=== PATIENT | male | born 1975 | race Caucasian/White ===

== ENCOUNTER 2017-12-31 06:03 | Day surgery (SDC) | payer OTHER ==
[2017-12-31] MEDS ORDERED: ceFAZolin 2 GM/50 ML 2 GM/50 ML BAG IV ONE (06:28)
[2017-12-31] MEDS ORDERED: LACTATED RINGERS 1,000 ML IV ONE (06:43)
--- NOTE | 2017-12-31 07:12 | ANESTHESIA ---
Pre-Anesthesia VS, & Labs - Diagnosis R ACL failure after repair - Procedure R knee scope, ACL debridement Vital Signs: Temp Pulse Resp BP Pulse Ox 36.4 C L 76 16 115/70 97 12/31/17 06:44 12/31/17 06:44 12/31/17 06:44 12/31/17 06:44 12/31/17 06:44 Height 6 ft 1 in Weight (kg) 81.65 kg - NPO >8 hours Home Medications and Allergies Home Medications: Ambulatory Orders No Known Home Medications 12/20/17 No Known Home Medications 12/20/17 Allergies/Adverse Reactions: Allergies Allergy/AdvReac Type Severity Reaction Status Date / Time No Known Drug Allergies Allergy Verified 12/20/17 16:12 Anes History & Medical History - Medical History Cardiovascular: reports: None Pulmonary: reports: None Gastrointestinal: reports: None Urinary: reports: None Musculoskeletal: reports: Other Endocrine/Autoimmune: reports: None Skin: reports: None - Surgical History Eyes Ears Nose Throat (EENT): Rhinoplasty, Other Exam General: Alert, Oriented x3, Cooperative Dental: WNL Mouth Opening: Greater than 4 Fingerbreadths Neck Mobility: Normal Mallampati classification: I, II Thyromental Distance: 4-6 cm Respiratory: Lungs clear, Normal breath sounds Cardiovascular: Regular rate Neurological: Normal speech Mental/Cognitive Status: Alert/Oriented X3 Cognitive Status: Within normal limits Plan Anesthesia Type: General, Adductor Block (possible) Consent for Procedure(s) Verified and Reviewed: Yes Code Status: Attempt Resuscitation ASA classification: 2-Mild systemic disease Is this case an emergency?: No
[2017-12-31] MEDS ORDERED: EPINEPHrine 1 MG/ML AMP ONE (07:19)
[2017-12-31] MEDS ORDERED: BUPIVACAINE 0.25% PF 30 ML VIAL ONE (07:19)
[2017-12-31] MEDS ORDERED: SODIUM CHLORIDE 0.9% 10 ML VIAL IV ONE (08:05)
[2017-12-31] MEDS ORDERED: LIDOCAINE-MPF 2% 5 ML VIAL IM ONE (08:05)
[2017-12-31] MEDS ORDERED: ePHEDrine 50 MG/ML AMP IVP ONE (08:05)
[2017-12-31] MEDS ORDERED: DEXAMETHASONE 4 MG/ML VIAL IVP ONE (08:05)
[2017-12-31] MEDS ORDERED: PHENYLEPHRINE 50 MG/5 ML VIAL IV ONE (08:05)
[2017-12-31] MEDS ORDERED: fentaNYL 100 MCG/2 ML VIAL IVP ONE (08:05)
[2017-12-31] MEDS ORDERED: PROPOFOL 200 MG/20 ML VIAL IVP ONE (08:05)
[2017-12-31] MEDS ORDERED: MIDAZOLAM 2 MG/2 ML VIAL IVP ONE (08:05)
[2017-12-31] MEDS ORDERED: KETOROLAC 30 MG/ML VIAL IVP ONE (08:05)
[2017-12-31] MEDS ORDERED: ONDANSETRON 4 MG/2 ML VIAL IVP ONE (08:05)
[2017-12-31] MEDS ORDERED: BUPIVACAINE 0.25% PF 30 ML VIAL SUBQ ONE ×2 (08:12→10:23)
[2017-12-31] MEDS ORDERED: ONDANSETRON 4 MG/2 ML VIAL IVP PRN (10:54)
[2017-12-31] MEDS ORDERED: HYDROcod/ACETAM 10 MG/325 MG TABLET PO PRN (10:54)
[2017-12-31] MEDS ORDERED: HYDROmorphone 0.5 MG/0.5 ML SYRINGE IVP PRN (10:54)
--- NOTE | 2017-12-31 11:01 | OPERATIVE REPORT ---
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 Arthroscopic findings: 1. Patella and trochlea:Grade II Chondromalacia patella, Trochlea normal 2. Medial compartment: Normal 3. Lateral compartment: Normal 4. ACL Graft present but lax, did not tighten with arthroscopic Mariusz, Anterior fibers torn and flipped into the medial compartment. PCL intact. Implants: Allograft bone dowels x2: 12 mm x 31 mm (full graft used), followed by 12 mm x 27 mm (partial) Tourniquet: Left thigh 250 mmHg, approximately 125 minutes Indications for procedure: This is a 42-year-old male who underwent arthroscopic excision assisted right ACL reconstruction with tibialis anterior allograft in 2014 at [facility] [place]. Since surgery he reports that his knee has never felt normal, nor has he been able to return to any pivoting or cutting activities. He reports ongoing instability and reports that he does not trust the knee. He has had several MRIs in the intervening time some of which suggest at least partial tearing or laxity of the ACL graft, with the likely presence of some intact fibers. He was evaluated in clinic and found to have an increased Lachma n and some instability with pivot shift testing. The remainder of his knee exam was largely unremarkable. We had a long discussion based on his clinical findings and recent MRI of the expectations following revision ACL reconstruction. Based on the size of the bone tunnels on preoperative CT scan, I felt it would be prudent to stage his ACL reconstruction, utilizing bone dowels to graft the tibial tunnel which is widened to approximately 15-1/2 mm x 18 mm at the aperture. We discussed risks of the procedure to include: Bleeding, infection, intraoperative fracture, failure to relieve symptoms, need for further procedures, infection risk from allograft, knee stiffness, blood clot (to include DVT and PE), risks of anesthesia, heart attack, stroke, . All questions were answered, and he desired to proceed with surgery. Plan surgery is right knee diagnostic arthroscopy ACL graft interrogation possible ACL graft debridement, possible tibial tunnel bone grafting. The plan was be fo r a second stage ACL reconstruction (presumably with BTB allograft) in approximately 4-6 months from the index procedure. Informed consent was signed in clinic. Procedure Details: The patient was met in the preoperative hold area. We reviewed the risks benefits and alternatives to surgery. Consent was reviewed. All questions were answered. The patient confirmed the surgical site as the right knee. I initialed the right knee. The patient then met with anesthesia and was brought back to the operating room. The patient was placed supine on the operating table. A well-padded tourniquet was placed on the thigh. A general anesthetic was induced and an LMA was placed. An examination under anesthesia was performed knee with the above-stated findings. The knee was then prepped and draped in the usual sterile fashion. A surgical timeout was then performed. The correct patient, correct procedure, and the correct surgical site were confirmed by everyone in the room. Perioperative antibiotics had been delivered. Following timeout and administration of antibiotics the Esmarch was used to exsanguinate the lower extremity and the tourniquet was raised to 250 mmHg. An 11 blade scalpel was used to make an anteromedial and anterolateral arthroscopic portal. The arthroscope was introduced into the knee and a diagnostic arthroscopy was performed with the above-stated findingsThe existing graft was visualized, and found to be lax: Functionally incompetent when subjected to arthroscopic Mariusz testing. A soft tissue notchplasty was performed with a combination of the arthroscopic sucker shaver and ArthroCare wand. The ACL graft was debrided using a combination of the arthroscopic sucker shaver, and radiofrequency ablation wand. The lateral wall of the notch was well visualized back to the joint capsule. The tibial footprint of the ACL graft was debrided with a sucker shaver, and ArthroCare wand taking care not to injure the anterior horns of the medial and lateral meniscus as well as the intermeniscal ligament. The arthroscope was then removed from the knee, and the previous excision incision overlying the medial tibia was marked and extended. Incision was made using a 15 blade through the skin and subcutaneous tissue and then a combination of sharp and blunt dissection along with electrocautery were used to dissect down to the surface of the tibia. We first visualized fiber wires traversing from the tibial tunnel to the swivel lock and used these as a guide to direct dissection to the aperture of the tibial tunnel. Once this had been identified it was cleared of overlying soft tissue, and a nitinol wire was passed retrograde up the tunnel into the joint. The arthroscope was reintroduced to the joint to confirm position within the previously identified tibial footprint. Satisfied that we were in the correct trajectory we then sequentially reamed over the nitinol wire to an 11 mm diameter reamer. The reamer was found to have good fit with minimal toggle, a combination of sucker shaver and curettes were used to scrape the robin of the tunnel to bleeding bone and clear them of soft tissue. The arthroscopic camera was introduced into the tunnel to confirm a good circumferential preparation, and then a tunnel was irrigated in preparation for bone grafting. A 12 mm x 31 mm allograft bone dowel was selected, and prepared by soaking in saline. This was then threaded over the nitinol wire and gently impacted into the tunnel. The arthroscope was used to confirm the level of double advancement. The dowel was advanced until at the level of the joint. Following impaction of the first bowel, there is an approximately 15 mm void at the distal end of the tibial tunnel, this was filled with DBX, followed by a second 12 mm dowel, nominally 27 mm in length, however approximately 1 cm of this was was cut following placement. The dowel was then contoured to match the shape of the anterior tibial cortex. Final pictures confirming adequate placement of the dowels with respect to the joint were taken, and the wounds were copiously irrigated with normal saline. The deep tissue overlying the tibial tunnel was closed with interrupted 0 Vicryl, followed by 2-0 Vicryl for the subcutaneous tissues, and a running subcuticular 3-0 Monocryl for the tibial incision, and buried 3-0 Monocryl interrupted sutures for the portal sites. The periarticular soft tissues and tibial incision were injected with 0.25% Marcaine plain. Mastisol and Steri-Strips were placed on the incisions, followed by Xeroform, followed by 4 x 4 gauze, and an ABD dressing. DAY hose was then placed on the leg to secure the dressings. The patient was awoken from anesthesia, extubated, and taken to the PACU for recovery in good condition. Postoperative plan: 1. Discharge home from the same day surgery facility once discharge criteria has been met. 2. Nonweightbearing with leg locked in extension for ambulation, can unlock brace for range of motion as tolerated when not loaded. Restrictions only until first follow-up visit in 5 days. At that point expect progression to weightbearing as tolerated, wean from crutches as tolerated, range of motion as tolerated.. 3. Will follow postoperative Knee arthroscopy rehabilitation protocol. 4. Return to clinic in 5 days for wound check. 5. Full strength aspirin 30 days for DVT prophylaxis.
[2017-12-31] MEDS ORDERED: ACETAMINOPHEN 1,000 MG/100 ML 100 ML IV ONE (11:25)
[2017-12-31] MEDS ORDERED: HYDROcod/ACETAM 5/325 MG TABLET ONE (12:07)
[2017-12-31 12:48] VITALS: BP 121/75
--- NOTE | 2017-12-31 14:13 | XRAY Report ---
Reason: s/p tibial bone grafting Procedure Date: 12/31/2017 Accession Number: [id number] / [id number] Procedure: XR - Knee 2 View RT CPT Code: FULL RESULT: EXAM: RIGHT KNEE RADIOGRAPHY EXAM DATE: 12/31/2017 11:20 AM. CLINICAL HISTORY: S/p tibial bone grafting. Post removal implants. Prior ACL repair COMPARISON: None. TECHNIQUE: 2 views. FINDINGS: Bones: Lucencies from prior ACL repair. Left femoral stable/clip. Joints: Osteophyte patellofemoral compartment Soft Tissues: Postop changes with air in soft tissues. IMPRESSION: Postop removal of implants. Prior ACL repair RADIA
== END 2017-12-31 06:04 | disposition home or self-care (01) ==
LOC: SDS 06:03
PROVIDERS: ATTEND Orthopaedic Surgery
PROC: 0QUG4KZ Supplement Right Tibia with Nonautologous Tissue Substitute, Percutaneous Endoscopic Approach (ICD-10-PCS; 2017-12-31)
PROC: 0MQN4ZZ Repair Right Knee Bursa and Ligament, Percutaneous Endoscopic Approach (ICD-10-PCS; principal; 2017-12-31 07:30)
DX: T84.418A Breakdown (mechanical) of other internal orthopedic devices, implants and grafts, initial encounter (principal); Y79.2 Prosthetic and other implants, materials and accessory orthopedic devices associated with adverse incidents; Z79.82 Long term (current) use of aspirin; M22.41 Chondromalacia patellae, right knee
CPT/HCPCS: 27899; 29888; 73560; A9270; C1713; J0131; J0690; J7120

== ENCOUNTER 2018-08-25 09:06 | Day surgery (SDC) | payer OTHER ==
[~2018-08-25 09:06] MED LIST: CEFAZOLIN SODIUM IN 0.9 % NACL 2 GM/100 ML BAG IV ONE
[2018-08-25] MEDS ORDERED: LACTATED RINGERS 1,000 ML IV ONE ×2 (10:08→14:58)
--- NOTE | 2018-08-25 10:47 | ANESTHESIA ---
Pre-Anesthesia VS, & Labs - Diagnosis right knee ACL tear - Procedure right knee scope, ACL revision with bone tendon bone allograft Vital Signs: Temp Pulse Resp BP Pulse Ox 36.6 C 69 20 103/73 98 08/25/18 09:10 08/25/18 09:10 08/25/18 09:10 08/25/18 09:10 08/25/18 09:10 Height 6 ft 1 in Weight (kg) 83.91 kg - NPO Last Fluid Intake: H20 4 Oz at 7:30 Home Medications and Allergies Home Medications: Ambulatory Orders Azelastine HCl 137 mcg NS 08/15/18 Fluticasone [Flonase] 1 sprays ROSINA DAILY 08/15/18 Loratadine [Claritin] 10 mg PO 08/15/18 Montelukast [Singulair] 10 mg PO QPM 08/15/18 Multivitamin [Multivitamins] 1 each PO 08/15/18 raNITIdine [Zantac] 150 mg PO DAILY 08/15/18 Azelastine HCl 137 mcg NS 08/15/18 Fluticasone [Flonase] 1 sprays ROSINA DAILY 08/15/18 Loratadine [Claritin] 10 mg PO 08/15/18 Montelukast [Singulair] 10 mg PO QPM 08/15/18 Multivitamin [Multivitamins] 1 each PO 08/15/18 raNITIdine [Zantac] 150 mg PO DAILY 08/15/18 Allergies/Adverse Reactions: Allergies Allergy/AdvReac Type Severity Reaction Status Date / Time No Known Drug Allergies Allergy Verified 08/15/18 11:58 Anes History & Medical History - Anesthetic History Anesthesia Complications: reports: No previous complications - Medical History Cardiovascular: reports: None Pulmonary: reports: None, Other (seasonal allergies) Gastrointestinal: reports: None Urinary: reports: None Neuro: reports: None Musculoskeletal: reports: None, Other Endocrine/Autoimmune: reports: None Blood Disorders: reports: None Skin: reports: None Smoking Status: Never smoker Psychosocial: reports: Alcohol (1-2 beers per week) - Surgical History Eyes Ears Nose Throat (EENT): Rhinoplasty, Other Orthopedic: ACL reconstruction, Arthroscopic surgery Exam General: Alert, Oriented x3, Cooperative, No acute distress Dental: WNL Mouth Openin Fingerbreadth Neck Mobility: Normal Mallampati classification: I Thyromental Distance: greater than 6 cm Respiratory: Lungs clear, Normal breath sounds, No respiratory distress, No accessory muscle use Cardiovascular: Regular rate, Normal S1, Normal S2, No murmurs Mental/Cognitive Status: Alert/Oriented X3, Normal for patient Plan Anesthesia Type: General Consent for Procedure(s) Verified and Reviewed: Yes Code Status: Attempt Resuscitation ASA classification: 1-Healthy patient Is this case an emergency?: No
[2018-08-25] MEDS ORDERED: EPINEPHrine 1 MG/ML AMP ONE (11:06)
[2018-08-25] MEDS ORDERED: BUPIVACAINE 0.25% PF 10 ML VIAL ONE (11:07)
[2018-08-25] MEDS ORDERED: BACITRACIN 50,000 UNIT VIAL ONE (11:32)
[2018-08-25] MEDS ORDERED: fentaNYL 100 MCG/2 ML VIAL IVP ONE (12:20)
[2018-08-25] MEDS ORDERED: HYDROmorphone 1 MG/ML SYRINGE IM ONE (12:20)
[2018-08-25] MEDS ORDERED: MIDAZOLAM 2 MG/2 ML VIAL IVP ONE (12:20)
[2018-08-25] MEDS ORDERED: KETOROLAC 30 MG/ML VIAL IVP ONE (12:20)
[2018-08-25] MEDS ORDERED: ACETAMINOPHEN 1,000 MG/100 ML 100 ML IV ONE (12:20)
[2018-08-25] MEDS ORDERED: ONDANSETRON 4 MG/2 ML VIAL IVP ONE (12:20)
[2018-08-25] MEDS ORDERED: LIDOCAINE-MPF 2% 5 ML VIAL IM ONE (12:20)
[2018-08-25] MEDS ORDERED: PROPOFOL 200 MG/20 ML VIAL IVP ONE (12:20)
[2018-08-25] MEDS ORDERED: DEXAMETHASONE 4 MG/ML VIAL IVP ONE (12:20)
[2018-08-25] MEDS ORDERED: BUPIVACAINE 0.25% PF 30 ML VIAL SUBQ ONE ×2 (12:31)
[2018-08-25] MEDS ORDERED: ONDANSETRON 4 MG/2 ML VIAL IVP PRN (15:02)
[2018-08-25] MEDS ORDERED: oxyCODONE 5 MG TABLET PO PRN (15:02)
--- NOTE | 2018-08-25 15:07 | OPERATIVE REPORT ---
Operative Report - General Procedure Date: 08/25/18 Planned Procedure: Revision right ACL reconstruction with bone patellar tendon allograft Pre-Op Diagnosis: Right ACL deficiency Procedure Performed: Revision right ACL reconstruction with bone patellar tendon bone allograft Post Op Diagnosis: Right ACL deficiency - Procedure Note Primary Surgeon: FABIAN JONES Secondary Surgeon: ANDREW MEDRANO Anesthesia Technique: General LMA Estimated Blood Loss (mL): 40 - Other Other Information/Narrative: Tourniquet: Right thigh 250 mmHg, approximately 126 minutes Implants: Femur: Arthrex BTB tight rope Tibia: Arthrex 9 x 20 mm metal interference screw Indication For Surgery: 43-year-old male approximately 6 months status post a right ACL allograft and debridement and tibial tunnel allograft dowel bone grafting due to failed primary allograft ACL. Following bone grafting, we had planned for a delayed second second stage reconstruction. Since the initial graft resection and bone grafting, he is undergone extensive physical therapy with improvements in quad strength and bulk. He however did complain of continued ongoing right knee instability, which caused some intermittent pain and swelling with certain activities. The risks, benefits, and alternatives were discussed. Risks include pain, bleeding, infection, damage to nearby structures and cartilage, lack of symptom relief, allograft infection transmission, need for further surgery, DVT, PE, stroke, and . Written consent was obtained. Examination Under Anesthesia: ROM equal to the contralateral side. Stable dial at 30 & 90 degrees. Stable to varus and valgus stressing at 0 & 30 degrees. IIB Amriusz. + Pivot clunk Diagnostic Arthroscopy: No loose bodies. Synovium mildly injected. Patella cartilage mild focal wear the median ridge. Trochlear cartilage mild fissure. Medial femoral condyle cartilage grossly normal. Medial tibial plateau cartilage grossly. Medial meniscus intact, medial meniscal root intact. ACL was surgically absent. PCL was intact. Lateral femoral condyle cartilage grossly normal. Lateral tibial plateau cartilage grossly. Lateral meniscus intact, lateral meniscal root intact. ? Procedure in Detail: On the day of surgery, the allograft was confirmed, along with potential back-up allografts. The patient was met in the pre-operative hold area on the day of the procedure. The operative extremity was signed and questions were answered. The graft was thawed using room temperature normal saline with bacitracin. The patient was brought to the operating room and a general anesthetic was administered. Supine position was used and bony prom inences were padded. An examination under anesthesia was performed. Standard prepping and draping was performed. A time out confirmed patient identification, laterality, procedure, allergies, antibiotics, and images. An Esmarch was used to exsanguinate the limb and the tourniquet was elevated to 250 mmHg. Total tourniquet time was approximately 126 minutes. Graft prep: A saw and rongeurs were used to redcue the size of the allograft to a 10mm wide and 20mm long patellar bone block and a 10mm wide and 40mm long tibial bone block. The patella was bulletized and a single 2.0 mm drill hole was placed. 2 drill holes were placed in the tibia. The final patellar bone block was 20mm, tendon was 50mm, tibial bone block was 40mm, for a total length of 110mm. A standard diagnostic arthroscopy of the knee was performed through anterolateral and anteromedial portal sites. The anteromedial portal was created under direct visualization after localizing with a spinal needle. The findings can be found above. I then proceeded to prepare the lateral notch and tibial footprint. I used a sucker shaver and a radiofrequency ablation wand to release residual soft tissue off of the lateral wall and define the prior femoral tunnel. A limited anterolateral notchplasty was performed using the sucker shaver and curettes to improve visualization. I placed the camera into the anteromedial portal and ensured that I was cleared all the way to the back wall. I then brought the flip cutter aiming device through the lateral portal. I positioned into the central position of the flandreau ACL footprint on the femur ensuring to leave a 2 mm back wall and stay off of the distal articular cartilage. Once satisfied with the position, the bullet was brought down to the skin and a gayla was made. A 3 cm longitudinal skin incision was made and the IT band was split in line with its fibers. A ashleigh rake was used to retract the IT band and the bullet was brought down to the lateral femoral wall. An 10mm sized flip cutter was then drilled into the notch. It was then flipped and the lateral wall was scored confirming an appropriate position. The bullet was then malleted into place and a 30mm femoral tunnel was drilled. Bony debris was removed with a shaver. A fiberstick suture was brought into the joint, retrieved out the lateral portal, and clamped to itself. I then identified the ACL footprint on the tibia and placed the tibial guide, ensuring an adequate tibial tunnel length of approximately 55mm. I aimed to have the guide pin come out in line with the posterior border of the anterior horn of the lateral meniscus, on the lateral border of the medial tibial spine. The guidewire was then brought into the joint. The knee was then straightened to confirm that it would not impinge on the notch. The guidewire was clamped with a Hali. The skin was then protected and the tibial tunnel was drilled with a 10mm reamer. The fiberwire was then brought through the tibial tunnel. The graft was then loaded onto the tightrope and the graft was marked at end of the bone block. The tightrope sutures were then passed and the button was brought out of the skin over the lateral femur. At this point the femoral bone block was in the notch. I then grabbed the bone block with a Angel and pushed posteriorly to be in line with the femoral tunnel. The bone block was then delivered into the femoral tunnel and the bone could no longer be seen. I then sequentially tightened the tight rope sutures and guided the button back down beneath the IT band and visualized it on the lateral femoral cortex. The knee was then cycled 20 times with tension on the graft. I then placed a large bump under the distal femur the pulled on the tibial bone block sutures. A posterior drawer was placed on to the proximal tibia. The guidewire was then placed into the tibial tunnel and the tibial screw was placed with excellent bony purchase. Mariusz stability had been restored. I then brought the arthroscope back into the joint and probed the graft finding it to have excellent tension. Final images were taken. The tourniquet was deflated. Excess tibial bone block was removed with a rongeur and the wounds were copiously irrigated. The IT band and deep tibial tissues were closed with interrupted 0 Vicryl, the subdermal tissues with 2-0 Vicryl, and the skin with running Monocryl. Steri-Strips were applied and 30 cc of 0.25% Marcaine was placed around the incisions. Sutures were dressed with Xeroform 4 x 4 gauze and an ABD, and secured in place using a compression stocking. The ROM brace was placed and was locked out in full extension. He was awakened and transferred to the recovery room.?
[2018-08-25] MEDS ORDERED: HYDROcod/ACETAM 5/325 MG TABLET PO PRN (15:59)
[2018-08-25] MEDS ORDERED: ONDANSETRON 4 MG/2 ML VIAL ONE (16:58)
[2018-08-25 17:39] VITALS: BP 125/77
== END 2018-08-25 09:07 | disposition home or self-care (01) ==
LOC: SDS 09:06
PROVIDERS: ATTEND Orthopaedic Surgery
PROC: 0MRN4KZ Replacement of Right Knee Bursa and Ligament with Nonautologous Tissue Substitute, Percutaneous Endoscopic Approach (ICD-10-PCS; principal; 2018-08-25 11:00)
DX: T84.490A Other mechanical complication of muscle and tendon graft, initial encounter (principal); M23.51 Chronic instability of knee, right knee; Y83.2 Surgical operation with anastomosis, bypass or graft as the cause of abnormal reaction of the patient, or of later complication, without mention of misadventure at the time of the procedure
CPT/HCPCS: 29888; C1713; J0131; J0690; J1170; J7120